=== PATIENT | male | born 1965 | race Two or more races ===

== ENCOUNTER 2019-08-11 11:49 | Inpatient (IN) | payer SELFPAY ==
[~2019-08-11] VITALS: Ht 175.3 cm; Wt 90.9 kg
[2019-08-11] MEDS ORDERED: IV NORMAL SALINE 1000ML BAG 1,000 ML IV ONE ×2 (13:45→15:45)
--- NOTE | 2019-08-11 13:54 | PHYS DOC ---
Adult General Chief Complaint Chief Complaint: MULTIPLE COMPLAINTS HPI HPI Patient is a 53 year old male who presents with generalized abdominal pain for last 3 days but today started with nausea, vomiting, diarrhea. 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 [facility] facility and he left after 1 day AMA due to poor care. Patient states his daughter took out his PICC line at home so he received no antibiotics. Patient is rating his pain a 6 out of 10. Patient's history is diabetes and arthritis. (GEORGINA HARRIS APRN) Review of Systems Review of Systems GI: Generalized abdominal pain, nausea, vomiting, eyes bloody stools or +diarrhea [] Integument: Skin infection to right hand and left [id number] amputation site. Denies rash or skin lesions [] All other systems were reviewed and found to be within normal limits, except as documented in this note. (GEORGINA HARRIS APRN) Current Medications Current Medications Current Medications Medications (Trade) Dose Ordered Sig/Hai Start Time Stop Time Status Last Admin Dose Admin Sodium Chloride 1,000 ml @ 1,000 mls/hr 1X ONCE 08/11/19 13:45 08/11/19 14:44 DC 08/11/19 14:00 1,000 MLS/HR (GABI BURNS MD) Allergies Allergies Allergies Coded Allergies Type Severity Reaction Last Updated Verified No Known Drug Allergies 08/11/19 No (GABI BURNS MD) Physical Exam Physical Exam Constitutional: Well developed, well nourished, no acute distress, non-toxic appearance. [] Cardiovascular:Heart rate regular rhythm, no murmur [] Lungs & Thorax: Bilateral breath sounds clear to auscultation [] Abdomen: Bowel sounds normal, soft, generalized tenderness, no masses, no pulsatile masses. [] Skin: Right hand infection with cellulitis and drainage. L BKA with sutures intact and redness. Warm, dry, no erythema, no rash. [] Extremities: No tenderness, no cyanosis, no clubbing, ROM intact, no edema. [] Neurologic: Alert and oriented X 3, normal motor function, normal sensory function, no focal deficits noted. [] Psychologic: Affect normal, judgement normal, mood normal. [] (GEORGINA HARRIS APRN) Current Patient Data Vital Signs Vital Signs Date Time Temp Pulse Resp B/P (MAP) Pulse Ox O2 Delivery O2 Flow Rate FiO2 08/11/19 15:00 90 18 182/95 (124) 96 Room Air 08/11/19 13:06 98.3 98.3 (GABI BURNS MD) Lab Values Laboratory Tests Test 08/11/19 13:40 08/11/19 14:05 Sodium Level 131 mmol/L (136-145) L Potassium Level 3.7 mmol/L (3.5-5.1) Chloride Level 100 mmol/L (98-107) Carbon Dioxide Level 18 mmol/L (21-32) L Anion Gap 13 (6-14) Blood Urea Nitrogen 32 mg/dL (8-26) H Creatinine 1.7 mg/dL (0.7-1.3) H Estimated GFR (Cockcroft-Gault) 42.2 BUN/Creatinine Ratio 19 (6-20) Glucose Level 213 mg/dL (70-99) H Lactic Acid Level 1.9 mmol/L (0.4-2.0) Calcium Level 9.6 mg/dL (8.5-10.1) Total Bilirubin 0.4 mg/dL (0.2-1.0) Aspartate Amino Transferase (AST) 29 U/L (15-37) Alanine Aminotransferase (ALT) 44 U/L (16-63) Alkaline Phosphatase 207 U/L (46-116) H Total Protein 8.7 g/dL (6.4-8.2) H Albumin 3.2 g/dL (3.4-5.0) L Albumin/Globulin Ratio 0.6 (1.0-1.7) L Lipase 443 U/L (73-393) H White Blood Count 7.0 x10^3/uL (4.0-11.0) Red Blood Count 3.22 x10^6/uL (4.30-5.70) L Hemoglobin 9.2 g/dL (13.0-17.5) L Hematocrit 26.3 % (39.0-53.0) L Mean Corpuscular Volume 82 fL (79-100) Mean Corpuscular Hemoglobin 29 pg (25-35) Mean Corpuscular Hemoglobin Concent 35 g/dL (31-37) Red Cell Distribution Width 15.2 % (11.5-14.5) H Platelet Count 244 x10^3/uL (140-400) Neutrophils (%) (Auto) 79 % (31-73) H Lymphocytes (%) (Auto) 15 % (24-48) L Monocytes (%) (Auto) 6 % (0-9) Eosinophils (%) (Auto) 0 % (0-3) Basophils (%) (Auto) 0 % (0-3) Neutrophils # (Auto) 5.5 x10^3/uL (1.8-7.7) Lymphocytes # (Auto) 1.0 x10^3/uL (1.0-4.8) Monocytes # (Auto) 0.4 x10^3/uL (0.0-1.1) Eosinophils # (Auto) 0.0 x10^3/uL (0.0-0.7) Basophils # (Auto) 0.0 x10^3/uL (0.0-0.2) Erythrocyte Sedimentation Rate 120 (0-15) H Hemoglobin A1c 7.7 % (4.8-5.6) H Iron Level 40 ug/dL (65-175) L Total Iron Binding Capacity 216 ug/dL (250-450) L Iron Saturation 19 % (15-34) Vitamin B12 Level 585 pg/mL (247-911) Laboratory Tests 08/11/19 14:05 Laboratory Tests 08/11/19 13:40 Microbiology 08/11/19 Blood Culture - Preliminary, Resulted NO GROWTH AFTER 2 DAYS (GABI BURNS MD) Lab Values Laboratory Tests Test 08/11/19 13:40 08/11/19 14:05 Sodium Level 131 mmol/L (136-145) L Potassium Level 3.7 mmol/L (3.5-5.1) Chloride Level 100 mmol/L (98-107) Carbon Dioxide Level 18 mmol/L (21-32) L Anion Gap 13 (6-14) Blood Urea Nitrogen 32 mg/dL (8-26) H Creatinine 1.7 mg/dL (0.7-1.3) H Estimated GFR (Cockcroft-Gault) 42.2 BUN/Creatinine Ratio 19 (6-20) Glucose Level 213 mg/dL (70-99) H Lactic Acid Level 1.9 mmol/L (0.4-2.0) Calcium Level 9.6 mg/dL (8.5-10.1) Total Bilirubin 0.4 mg/dL (0.2-1.0) Aspartate Amino Transferase (AST) 29 U/L (15-37) Alanine Aminotransferase (ALT) 44 U/L (16-63) Alkaline Phosphatase 207 U/L (46-116) H Total Protein 8.7 g/dL (6.4-8.2) H Albumin 3.2 g/dL (3.4-5.0) L Albumin/Globulin Ratio 0.6 (1.0-1.7) L Lipase 443 U/L (73-393) H White Blood Count 7.0 x10^3/uL (4.0-11.0) Red Blood Count 3.22 x10^6/uL (4.30-5.70) L Hemoglobin 9.2 g/dL (13.0-17.5) L Hematocrit 26.3 % (39.0-53.0) L Mean Corpuscular Volume 82 fL (79-100) Mean Corpuscular Hemoglobin 29 pg (25-35) Mean Corpuscular Hemoglobin Concent 35 g/dL (31-37) Red Cell Distribution Width 15.2 % (11.5-14.5) H Platelet Count 244 x10^3/uL (140-400) Neutrophils (%) (Auto) 79 % (31-73) H Lymphocytes (%) (Auto) 15 % (24-48) L Monocytes (%) (Auto) 6 % (0-9) Eosinophils (%) (Auto) 0 % (0-3) Basophils (%) (Auto) 0 % (0-3) Neutrophils # (Auto) 5.5 x10^3/uL (1.8-7.7) Lymphocytes # (Auto) 1.0 x10^3/uL (1.0-4.8) Monocytes # (Auto) 0.4 x10^3/uL (0.0-1.1) Eosinophils # (Auto) 0.0 x10^3/uL (0.0-0.7) Basophils # (Auto) 0.0 x10^3/uL (0.0-0.2) Erythrocyte Sedimentation Rate 120 (0-15) H Laboratory Tests 08/11/19 14:05 Laboratory Tests 08/11/19 13:40 (GEORGINA HARRIS APRN) EKG EKG SINUS RHYTHM AND NO STEMI[] Interpretation Time: [address] BURNS (GEORGINA HARRIS APRN) Radiology/Procedures Radiology/Procedures [] (GEORGINA HARRIS APRN) Impressions: [address] [address] IMAGING REPORT Signed PATIENT: EMILY HINKLE ACCOUNT: [id number] : 1965 LOCATION: ER AGE: 53 SEX: M EXAM STATUS: REG ER ORD. PHYSICIAN: GEORGINA HARRIS APRN REASON: post L BKA and Finger amputation, infection PROCEDURE: HAND RIGHT 3V Examination: HAND RIGHT 3V History: Finger amputation. Infection. Comparison/Correlation: None Findings: Total 3 images of the right hand were obtained. Amputation of the second and third digits noted. Partial amputation or other absence of the second metacarpal head laterally is evident. Bony densities noted in the soft tissues distal to the amputation site soft tissue swelling at this site noted. Impression: Soft tissue swelling about the amputation site. Amputations. Correlate with further imaging if osteomyelitis or abscess are a concern. Electronically signed by: Will Miller MD (08/11/2019 2:08 PM) [facility] DICTATED and SIGNED BY: WILL MILLER MD DATE: 08/11/[address] [id number] IMAGING REPORT Signed PATIENT: EMILY HINKLE ACCOUNT: [id number] : 1965 LOCATION: ER AGE: 53 SEX: M EXAM STATUS: REG ER ORD. PHYSICIAN: GEORGINA HARRIS APRN REASON: post L BKA and Finger amputation, infection PROCEDURE: TIBIA FIBULA LEFT Examination: TIBIA FIBULA LEFT History: Infection. Status post left below the knee amputation. Comparison/Correlation: None Findings: Frontal and lateral views of the left tibia and fibula were obtained. Joint spaces about the knee are unremarkable. Minimal spurring noted. Below the knee amputation is noted at the proximal tibial and fibular shaft levels. Skin mimi are present. Vascular calcifications noted. No suspicious prosthesis interface seen in this postoperative patient. Impression: No suspicious process. Consider further imaging if abscess or osteomyelitis are a concern. Electronically signed by: Will Miller MD (08/11/2019 2:05 PM) [facility] DICTATED and SIGNED BY: WILL MILLER MD DATE: 08/11/19 1407 [facility] [address] [place] [address] IMAGING REPORT Signed PATIENT: EMILY HINKLE ACCOUNT: [id number] : 1965 LOCATION: ER AGE: 53 SEX: M EXAM STATUS: REG ER ORD. PHYSICIAN: GEORGINA HARRIS APRN REASON: elevated alk phos and lipase PROCEDURE: ABDOMEN LTD Examination: ABDOMEN LTD History: Elevated lipase and alkaline phosphatase. Comparison/Correlation: None Findings: Hepatic echotexture is normal. Liver length is 17.2 cm. Gallbladder wall thickness is up to 0.3 cm. No cholelithiasis. No biliary dilatation. No pericholecystic fluid. Common bile duct measures 0.33 cm. Portal venous flow is unremarkable. Right kidney measures 10.7 cm x 5.6 cm x 5.3 cm. No right hydronephrosis. Renal echotexture is normal. Proximal pancreas is normal. Distal pancreas is obscured by bowel gas. No right upper quadrant ascites. Impression: Borderline liver size. No suspicious acute finding. Electronically signed by: Will Miller MD (08/11/2019 4:17 PM) [facility] DICTATED and SIGNED BY: WILL MILLER MD DATE: 08/11/19 056 (GEORGINA HARRIS APRN) Course & Med Decision Making Course & Med Decision Making Left below the knee amputation is reddened at incision site and mimi are intact. No drainage seen coming from the surgical site. Right hand right third finger amputation site is swollen and reddened and hot. There is purulent discharge from the surgical site. Patient has received no wound care. Abdomen is soft with generalized tenderness throughout. Vital signs within normal limits. Patient only states he has pain in his abdomen. Skin otherwise pink warm and dry. Alert and oriented. Speaks in full clear sentences. Denies chest pain, shortness of air, dizziness, headache, fever, recent illness, visual changes, focal weaknesses. Patient currently rating his pain a 6 out of 10. I have spoken to Dr Harmon for admission of pancreatitis and cellulitis. Dr. Harmon stated to start the patient on Zosyn and vancomycin and NS IV fluid at 75MLS/HR. (GEORGINA HARRIS APRN) Dragon Disclaimer Dragon Disclaimer This electronic medical record was generated, in whole or in part, using a voice recognition dictation system. (GEORGINA HARRIS APRN) Attending Signature I have participated in the care of this patient and I have reviewed and agree with all pertinent clinical information above including history, exam, and recommendations. (GABI BURNS MD) Departure Departure Impression: Primary Impression: Pancreatitis Additional Impression: Cellulitis Disposition: 09 ADMITTED INPATIENT Admitting Physician: AURORA (GEORGINA HARRIS APRN) Condition: STABLE Referrals: NO PCP (PCP) Scripts Insulin Lispro (HUMALOG) 100 Unit/1 Ml Insuln.pen 26 UNITS SQ TIDWMEALS for DM2 for 30 Days, #1 EACH 4 Refills Plus sliding scale 4u - 151-200 5u - 201-250 7u - 251-300 9u - 301-350 Prov: ESCOBAR MUÑIZ MD 08/13/19 Vancomycin Hcl (VANCOMYCIN HCL) 500 Mg Vial 125 MG PO [id number] for C difficile for 10 Days, #40 EACH Can sub with any oral vancomycin formulation Prov: ESCOBAR MUÑIZ MD 08/13/19 Insulin Glargine,Hum.rec.anlog (LANTUS SOLOSTAR) 100 Unit/1 Ml Insuln.pen 70 UNIT SQ QHS for Diabetes for 30 Days, #1 ML 3 Refills Prov: ESCOBAR MUÑIZ MD 08/13/19 Problem Qualifiers Primary Impression: Pancreatitis Chronicity: acute Pancreatitis type: unspecified pancreatitis type Acute pancreatitis complication: unspecified Qualified Codes: K85.90 - Acute pancreatitis without necrosis or infection, unspecified Additional Impression: Cellulitis Site of cellulitis: extremity Site of cellulitis of extremity: upper extremity Laterality: right Qualified Codes: L03.113 - Cellulitis of right upper limb GEORGINA HARRIS APRN Aug 11, 2019 13:54 GABI BURNS MD Aug 13, 2019 18:16
[2019-08-11 14:01] LABS: CALCIUM 9.6 mg/dL (8.5-10.1); CREATININE 1.7 mg/dL (0.7-1.3); GFR 42.2; POTASSIUM 3.7 mmol/L (3.5-5.1)
[2019-08-11 14:07] LABS: ALBUMIN 3.2 g/dL (3.4-5.0); ALBUMIN/GLOBULIN RATIO 0.6 (1.0-1.7); TOTAL BILIRUBIN 0.4 mg/dL (0.2-1.0); TOTAL PROTEIN 8.7 g/dL (6.4-8.2)
--- NOTE | 2019-08-11 14:08 | RAD ---
Examination: TIBIA FIBULA LEFT History: Infection. Status post left below the knee amputation. Comparison/Correlation: None Findings: Frontal and lateral views of the left tibia and fibula were obtained. Joint spaces about the knee are unremarkable. Minimal spurring noted. Below the knee amputation is noted at the proximal tibial and fibular shaft levels. Skin mimi are present. Vascular calcifications noted. No suspicious prosthesis interface seen in this postoperative patient. Impression: No suspicious process. Consider further imaging if abscess or osteomyelitis are a concern. Electronically signed by: Will Harper MD (08/11/2019 2:05 PM) [facility]
--- NOTE | 2019-08-11 14:11 | RAD ---
Examination: HAND RIGHT 3V History: Finger amputation. Infection. Comparison/Correlation: None Findings: Total 3 images of the right hand were obtained. Amputation of the second and third digits noted. Partial amputation or other absence of the second metacarpal head laterally is evident. Bony densities noted in the soft tissues distal to the amputation site soft tissue swelling at this site noted. Impression: Soft tissue swelling about the amputation site. Amputations. Correlate with further imaging if osteomyelitis or abscess are a concern. Electronically signed by: Will Harper MD (08/11/2019 2:08 PM) [facility]
[2019-08-11 14:14] LABS: BASO % 0 % (0-3); EOS % 0 % (0-3); HEMATOCRIT 26.3 % (39.0-53.0); HEMOGLOBIN 9.2 g/dL (13.0-17.5); LYMPH % 15 % (24-48); MEAN CORPUSCULAR HEMOGLOBIN 29 pg (25-35); MEAN CORPUSCULAR HGB CONC 35 g/dL (31-37); MEAN CORPUSCULAR VOLUME 82 fL (79-100); MONO # 0.4 x10^3/uL (0.0-1.1); MONO % 6 % (0-9); NEUT # 5.5 x10^3/uL (1.8-7.7); NEUT % 79 % (31-73); PLATELET COUNT 244 x10^3/uL (140-400); RED BLOOD COUNT 3.22 x10^6/uL (4.30-5.70); RED CELL DISTRIBUTION WIDTH 15.2 % (11.5-14.5)
[2019-08-11] MEDS ORDERED: PIP/TAZO PER PHARMACY MC PRN (15:45)
[2019-08-11] MEDS ORDERED: ONDANSETRON PF 4 MG/2 ML VIAL. IV PRN (15:45)
[2019-08-11] MEDS ORDERED: fentaNYL PF VIAL 100 MCG/2 ML VIAL IV PRN (15:45)
[2019-08-11] MEDS ORDERED: VANCOMYCIN PER PHARMACY MC PRN (15:45)
[2019-08-11] MEDS ORDERED: PIPERACILLIN/TAZOBACTAM 3.375 GM in IV NORMAL SALINE 50ML 50 ML IV ONE (16:00)
[2019-08-11] MEDS ORDERED: VANCOMYCIN 2 GM in IV NORMAL SALINE 500ML BAG 500 ML IV ONE (16:00)
--- NOTE | 2019-08-11 16:01 | PDOC2 ---
GI CONSULT Reason For Consult: Pancreatitis HPI: HPI: 53 y/o male seen in ER. [place] B[place] and [place] [facility] diabetic [place]. Doesn't want to go back to [facility] because they sent him to rehab and he didn't like it there because they didn't keep good track of his blood sugar. Says not on antibiotics. GI-rodrigues, he reports decreased appetite beginning 5 days ago. Then about 3 days ago developed n/v, mid/lower abd cramping (constant but worse after eating and before stooling, moves from left to right), and diarrhea ("many many times") after eating some apples. Also thinks he has a new prostate problem because it's difficult to urinate. Typically no issues w/ n/v, abd pain, or diarrhea. Denies reflux/heartburn, dysphagia, hematemesis, hematochezia, and melena. Assumes weight loss. No previous EGD or colonoscopy. No GB, liver, pancreas, or PUD history. No NSAIDs - takes Tramadol for chronic arthritis pain. Did require blood transfusion [place] [facility] Labs note Hgb 9.2, MCV 82, glucose 213, Cr 1.7, BUN 32, Alk Phos 207, Na 131, lipase 443, AG ratio 0.6, normal lactic acid, ESR 120. He denies CKD. Hand x-ray notes soft tissue swelling about the amputation site. Abd US is pending. 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) Drugs: None ROS: GEN: Denies fevers, chills, sweats HEENT: Denies blurred vision, sore throat CV: Denies chest pain RESP: Denies shortness of air, cough GI: Per HPI : +hesitancy ENDO: +weight loss NEURO: Denies confusion, dizziness MSK: +chronic pain, also recent amputations SKIN: Denies jaundice, pruritus Vitals: Vitals: Vital Signs Date Time Temp Pulse Resp B/P (MAP) Pulse Ox O2 Delivery O2 Flow Rate FiO2 08/11/19 13:06 98.3 88 18 184/86 (118) 100 Room Air 98.3 Labs: Labs: Laboratory Tests Test 08/11/19 13:40 08/11/19 14:05 Sodium Level 131 mmol/L (136-145) Potassium Level 3.7 mmol/L (3.5-5.1) Chloride Level 100 mmol/L (98-107) Carbon Dioxide Level 18 mmol/L (21-32) Anion Gap 13 (6-14) Blood Urea Nitrogen 32 mg/dL (8-26) Creatinine 1.7 mg/dL (0.7-1.3) Estimated GFR (Cockcroft-Gault) 42.2 BUN/Creatinine Ratio 19 (6-20) Glucose Level 213 mg/dL (70-99) Lactic Acid Level 1.9 mmol/L (0.4-2.0) Calcium Level 9.6 mg/dL (8.5-10.1) Total Bilirubin 0.4 mg/dL (0.2-1.0) Aspartate Amino Transf (AST/SGOT) 29 U/L (15-37) Alanine Aminotransferase (ALT/SGPT) 44 U/L (16-63) Alkaline Phosphatase 207 U/L (46-116) Total Protein 8.7 g/dL (6.4-8.2) Albumin 3.2 g/dL (3.4-5.0) Albumin/Globulin Ratio 0.6 (1.0-1.7) Lipase 443 U/L (73-393) White Blood Count 7.0 x10^3/uL (4.0-11.0) Red Blood Count 3.22 x10^6/uL (4.30-5.70) Hemoglobin 9.2 g/dL (13.0-17.5) Hematocrit 26.3 % (39.0-53.0) Mean Corpuscular Volume 82 fL (79-100) Mean Corpuscular Hemoglobin 29 pg (25-35) Mean Corpuscular Hemoglobin Concent 35 g/dL (31-37) Red Cell Distribution Width 15.2 % (11.5-14.5) Platelet Count 244 x10^3/uL (140-400) Neutrophils (%) (Auto) 79 % (31-73) Lymphocytes (%) (Auto) 15 % (24-48) Monocytes (%) (Auto) 6 % (0-9) Eosinophils (%) (Auto) 0 % (0-3) Basophils (%) (Auto) 0 % (0-3) Neutrophils # (Auto) 5.5 x10^3/uL (1.8-7.7) Lymphocytes # (Auto) 1.0 x10^3/uL (1.0-4.8) Monocytes # (Auto) 0.4 x10^3/uL (0.0-1.1) Eosinophils # (Auto) 0.0 x10^3/uL (0.0-0.7) Basophils # (Auto) 0.0 x10^3/uL (0.0-0.2) Erythrocyte Sedimentation Rate 120 (0-15) Allergies: Coded Allergies: No Known Drug Allergies (Unverified , 08/11/19) Medications: Current Medications Medications (Trade) Dose Ordered Sig/Hai Route PRN Reason Start Time Stop Time Status Last Admin Dose Admin Sodium Chloride 1,000 ml @ 1,000 mls/hr 1X ONCE IV 08/11/19 13:45 08/11/19 14:44 DC 08/11/19 14:00 Imaging: Imaging: Left Tib-Fib X-Ray 08/11 Impression: No suspicious process. Consider further imaging if abscess or osteomyelitis are a concern. Right Hand X-Ray 08/11 Impression: Soft tissue swelling about the amputation site. Amputations. Correlate with further imaging if osteomyelitis or abscess are a concern. Abd US 08/11 pending PE: GEN: NAD HEENT: Atraumatic, PERRL LUNGS: CTAB HEART: RRR ABD: NABS, S/ND/NT EXTREMITY: left BKA w/ mimi, right middle finger amputation site w/ yellowish drainage SKIN: No rashes, no jaundice NEURO/PSYCH: A & O �3 A/P: A/P: Recent left BKA and right finger amputation N/v, abd cramping, diarrhea Anemia - had recent blood transfusion, no obvious bleeding Mildly elevated lipase, elevated Alk Phos CRC screen - none HTN, DM, ?CKD -- Check anemia parameters and stool studies. Also check UA/cx. 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 Await US, check CT A/P (w/o contrast w/ Cr 1.7). Plan for outpt colonoscopy for screening. Started on atbx per ER, ID to see. ALY ZAMARRIPA Aug 11, 2019 16:01
[2019-08-11] MEDS ORDERED: PANTOPRAZOLE IV PUSH 40 MG VIAL. IVP SCH (16:30)
--- NOTE | 2019-08-11 16:41 | RAD ---
Examination: ABDOMEN LTD History: Elevated lipase and alkaline phosphatase. Comparison/Correlation: None Findings: Hepatic echotexture is normal. Liver length is 17.2 cm. Gallbladder wall thickness is up to 0.3 cm. No cholelithiasis. No biliary dilatation. No pericholecystic fluid. Common bile duct measures 0.33 cm. Portal venous flow is unremarkable. Right kidney measures 10.7 cm x 5.6 cm x 5.3 cm. No right hydronephrosis. Renal echotexture is normal. Proximal pancreas is normal. Distal pancreas is obscured by bowel gas. No right upper quadrant ascites. Impression: Borderline liver size. No suspicious acute finding. Electronically signed by: Will Harper MD (08/11/2019 4:17 PM) [facility]
--- NOTE | 2019-08-11 17:12 | RAD ---
Abdominal and Pelvis CT, Without Contrast: History: Vomiting lower abdominal pain and diarrhea and elevated lipase Comparison: None. Procedure: Axial images are obtained of the abdomen and pelvis, without IV or oral contrast. CT Abdomen without Contrast: Findings: Evaluation of solid organs is limited without contrast. Evaluation of stomach and bowel is limited without oral contrast. There is old fractures the ends of the left eighth and ninth ribs. The colon is collapsed limiting its evaluation. Liver: Normal. Spleen: Normal. Pancreas: Normal. Adrenal Glands: Normal. Kidneys: Normal. There is no free air or free fluid. There is no lymphadenopathy. Impression: Please see CT Pelvis without Contrast. End Impression. CT Pelvis without Contrast: Findings: The urinary bladder appears normal. There is no free fluid. There is no lymphadenopathy. There is no pericolonic inflammation identified. The appendix is not identified. Impression: No acute findings. End impression PQRS Compliance Statement: One or more of the following individualized dose reduction techniques were utilized for this examination: 1. Automated exposure control 2. Adjustment of the mA and/or kV according to patient size 3. Use of iterative reconstruction technique Electronically signed by: Gerard Lew III, MD (08/11/2019 5:10 PM) [facility]
[2019-08-11] MEDS: IV NORMAL SALINE 1000ML BAG 1,000 ML IV SCH (17:23)
--- NOTE | 2019-08-11 19:06 | NUR ---
Pharmacy Vancomycin Dosing Note S:Consulted to monitor and dose vancomycin started 08/11/19. O:EMILY HINKLE is a 53 year old M with Cellulitis . Height: 5 feet, 9 inches Weight: 90.378197 kg [place] Body Weight: 70.70 Adjusted Body Weight: 78.82 Dosing Weight: Actual Other Antibiotics: ZOSYN 08/11 - LABS: Last BUN: 32 Last Creatinine: 1.7 Creatinine Clearance: 55 mL/min Last WBC: 7 Last Procalcitonin: N Tmax (past 24 hours): 98.3 Microbiology: 08/11 PENDING I/O: Drug Levels: Last level: on at Last dose given 08/11/19 at 1700 Vancomycin Dosing: Loading Dose: 2000 mg x1 Dosing Weight: Actual Target Trough: 10-20 A: Based on: WEIGHT,CRCL~55 P: 1. INITIATE Vancomycin 1500 mg IV q24h AFTER 2000 MG LOADING DOSE 2. Follow up Trough level on 08/13/19 at 1630 3. Pharmacy will continue to monitor, follow and adjust therapy as needed. REYNALDO VELAZQUEZ [facility], 08/11/19 [id number]
[2019-08-11 19:25] VITALS: BP 156/80
--- NOTE | 2019-08-11 20:07 | HP ---
ADMIT DATE: 08/11/2019 CHIEF COMPLAINT: Abdominal pain, nausea, right hand infection, recent left tsdsk-mmi-mtuv amputation. 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 He underwent a left mcqso-wqj-fhgd amputation, I think at [facility]. He also had a right third finger amputated. As I understand, he left against medical advice at that facility. Now, he has got an infected third finger where the stump is, where the finger was resected. He also has abdominal pain and noted to have pancreatitis today with elevated lipase of 443. Indeed, he does not drink. I discussed the case with the Emergency Room physician. We are going to admit the patient and treat his right third finger infection and do some wound care on the left below knee amputation and give him alcohol withdrawal protocol and treat his pancreatitis. PAST MEDICAL HISTORY: Alcohol issues, peripheral vascular disease, recent wigbb-scc-wmkh amputation, recent right third finger amputation, noncompliance, hypertension. ALLERGIES: None. FAMILY HISTORY: Hypertension. SOCIAL HISTORY: I think he drinks heavily. No smoking or drugs. MEDICATIONS: Reviewed, please refer to the MRAD. REVIEW OF SYSTEMS: GENERAL: No history of weight change, weakness or fevers. SKIN: No bruising, hair changes or rashes. EYES: No blurred, double or loss of vision. NOSE AND THROAT: No history of nosebleeds, hoarseness or sore throat. HEART: No history of palpitations, chest pain or shortness of breath on exertion. LUNGS: Denies cough, hemoptysis, wheezing or shortness of breath. GASTROINTESTINAL: He complains of abdominal pain. GENITOURINARY: No history of frequency, urgency, hesitancy or nocturia. NEUROLOGIC: Denies history of numbness, tingling, tremor or weakness. PSYCHIATRIC: No history of panic, anxiety or depression. ENDOCRINE: No history of heat or cold intolerance, polyuria or polydipsia. EXTREMITIES: He complains of left leg pain at the stump site and right hand pain at the stump site where they removed the finger. PHYSICAL EXAMINATION: VITALS: Within normal limits and are stable. GENERAL: No apparent distress. Alert and oriented. HEENT: Head is normocephalic, atraumatic, pupils were equally round and reactive to light and accommodation. NECK: Supple, no JVD, no thyromegaly was noted. LUNGS: Clear to auscultation in all lung jara without rhonchi or wheezing. HEART: RRR, S1, S2 present. Peripheral pulses intact, no obvious murmurs were noted. ABDOMEN: Soft, nontender. Positive bowel sounds no organomegaly, normal bowel sounds. EXTREMITIES: The left leg has a orggh-ktdw-peugsrwilx and the right third finger is missing. There is pus coming from the stump. NEUROLOGIC: Normal speech, normal tone. A & O x3, moves all extremities, no obvious focal deficits. PSYCHIATRIC: Normal affect, normal mood. Stable. SKIN: No ulcerations or rashes, good skin turgor, no jaundice. VASCULAR: Good capillary refill, neurovascular bundle appears to be intact. LABORATORY DATA: Sodium 131, BUN 32, creatinine 1.7. Lipase is 443. ASSESSMENT AND PLAN: Right third finger infection of the stump site, pancreatitis, alcohol issues and severe noncompliance. The patient has been admitted. We will consult Gastroenterology and Infectious Disease. IV antibiotics, wound care, deep venous thrombosis prophylaxis, full code, alcohol withdrawal protocol and home medications. PROGNOSIS: Guarded. KARENL Aixa EDGE DO DR: CARLOS/jaymie JOB#: [id number] / [id number]
[2019-08-11 23:25] VITALS: BP 135/52
[2019-08-12] MEDS: PIPERACILLIN/TAZOBACTAM 4.5 GM in IV NORMAL SALINE 100ML 100 ML IV SCH ×3 (00:22→12:00)
[2019-08-12 03:25] VITALS: BP 144/78
[2019-08-12] MEDS: IV NORMAL SALINE 1000ML BAG 1,000 ML IV SCH (04:55)
[2019-08-12 05:16] LABS: CREATININE 1.7 mg/dL (0.7-1.3); GFR 42.2
--- NOTE | 2019-08-12 05:52 | EKG ---
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
[2019-08-12 07:00] VITALS: BP 142/74
--- NOTE | 2019-08-12 08:34 | NUR ---
Wound care Wound care consult for right hand open surgical incision. Cleansed wound, applied iodoflex and covered telfa bandaid. L BKA surgical incision with intact mimi and sutures, slightly reddened and edematous. Cleansed with chlorprep and wrapped with kerlix per pt request. No other wounds noted on fulls kin inspection. WC will continue to follow for possible changes.
[2019-08-12] MEDS ORDERED: ONDANSETRON PF 4 MG/2 ML VIAL. IV PRN (09:00)
[2019-08-12] MEDS ORDERED: ACETAMINOPHEN 500 MG TABLET PO PRN (09:00)
[2019-08-12] MEDS ORDERED: ZOLPIDEM 5 MG TABLET. PO PRN (09:00)
[2019-08-12] MEDS ORDERED: LABETALOL 20 MG/4 ML DISP.SYRIN. IVP PRN (09:00)
[2019-08-12] MEDS ORDERED: MORPHINE SULFATE 2 MG/ML VIAL. IV PRN (09:00)
[2019-08-12] MEDS ORDERED: NICOTINE 21MG PATCH. TD PRN (09:00)
--- NOTE | 2019-08-12 10:06 | PDOC ---
Subjective: Subjective: Feels better. No n/v, no abd pain. Notes small amount of watery brown stool on bedding - must have occurred overnight. Hungry. Objective: Objective: Reviewed chart - ?left AMA from [facility], tox screen, and A1c cancelled by lab. Vital Signs: Vital Signs Date Time Temp Pulse Resp B/P (MAP) Pulse Ox O2 Delivery O2 Flow Rate FiO2 08/12/19 07:00 98.4 74 16 142/74 (96) 99 Room Air 98.4 Labs: Laboratory Tests Test 08/11/19 13:40 08/11/19 14:05 08/11/19 21:13 08/12/19 04:00 Sodium Level 131 mmol/L Potassium Level 3.7 mmol/L Chloride Level 100 mmol/L Carbon Dioxide Level 18 mmol/L Anion Gap 13 Blood Urea Nitrogen 32 mg/dL Creatinine 1.7 mg/dL 1.7 mg/dL Estimated GFR (Cockcroft-Gault) 42.2 42.2 BUN/Creatinine Ratio 19 Glucose Level 213 mg/dL Lactic Acid Level 1.9 mmol/L Calcium Level 9.6 mg/dL Total Bilirubin 0.4 mg/dL Aspartate Amino Transf (AST/SGOT) 29 U/L Alanine Aminotransferase (ALT/SGPT) 44 U/L Alkaline Phosphatase 207 U/L Total Protein 8.7 g/dL Albumin 3.2 g/dL Albumin/Globulin Ratio 0.6 Lipase 443 U/L White Blood Count 7.0 x10^3/uL Red Blood Count 3.22 x10^6/uL Hemoglobin 9.2 g/dL Hematocrit 26.3 % Mean Corpuscular Volume 82 fL Mean Corpuscular Hemoglobin 29 pg Mean Corpuscular Hemoglobin Concent 35 g/dL Red Cell Distribution Width 15.2 % Platelet Count 244 x10^3/uL Neutrophils (%) (Auto) 79 % Lymphocytes (%) (Auto) 15 % Monocytes (%) (Auto) 6 % Eosinophils (%) (Auto) 0 % Basophils (%) (Auto) 0 % Neutrophils # (Auto) 5.5 x10^3/uL Lymphocytes # (Auto) 1.0 x10^3/uL Monocytes # (Auto) 0.4 x10^3/uL Eosinophils # (Auto) 0.0 x10^3/uL Basophils # (Auto) 0.0 x10^3/uL Erythrocyte Sedimentation Rate 120 Iron Level 40 ug/dL Total Iron Binding Capacity 216 ug/dL Iron Saturation 19 % Vitamin B12 Level 585 pg/mL Glucose (Fingerstick) 208 mg/dL Test 08/12/19 07:30 Glucose (Fingerstick) 162 mg/dL Imaging: CT A/P w/o contrast 08/11 Findings: Evaluation of solid organs is limited without contrast. Evaluation of stomach and bowel is limited without oral contrast. There is old fractures the ends of the left eighth and ninth ribs. The colon is collapsed limiting its evaluation. Liver: Normal. Spleen: Normal. Pancreas: Normal. Adrenal Glands: Normal. Kidneys: Normal. There is no free air or free fluid. There is no lymphadenopathy. CT Pelvis without Contrast: Findings: The urinary bladder appears normal. There is no free fluid. There is no lymphadenopathy. There is no pericolonic inflammation identified. The appendix is not identified. Impression: No acute findings. RUQ US Findings: Hepatic echotexture is normal. Liver length is 17.2 cm. Gallbladder wall thickness is up to 0.3 cm. No cholelithiasis. No biliary dilatation. No pericholecystic fluid. Common bile duct measures 0.33 cm. Portal venous flow is unremarkable. Right kidney measures 10.7 cm x 5.6 cm x 5.3 cm. No right hydronephrosis. Renal echotexture is normal. Proximal pancreas is normal. Distal pancreas is obscured by bowel gas. No right upper quadrant ascites. Impression: Borderline liver size. No suspicious acute finding. PE: GEN: NAD - sitting on edge of bed LUNGS: CTAB HEART: RRR ABD: S/ND/NT NEURO/PSYCH: A & O �3 A/P: Recent left BKA and right finger amputation N/v, abd cramping, diarrhea - resolving ACD Mildly elevated lipase, elevated Alk Phos DM, suspect CKD -- Try clears, ADAT. 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 Monitor for diarrhea - stool studies are ordered/uncollected. Unclear significance of mildly elevated lipase w/ normal pancreas and GB on imaging - recheck. ALY ZAMARRIPA Aug 12, 2019 10:06
--- NOTE | 2019-08-12 10:19 | PDOC ---
Infectious Disease Note Vital Sign Vital Signs Vital Signs Date Time Temp Pulse Resp B/P (MAP) Pulse Ox O2 Delivery O2 Flow Rate FiO2 08/12/19 07:00 98.4 74 16 142/74 (96) 99 Room Air 98.4 Labs Lab Laboratory Tests Test 08/11/19 13:40 08/11/19 14:05 08/11/19 21:13 08/12/19 04:00 Sodium Level 131 mmol/L (136-145) Potassium Level 3.7 mmol/L (3.5-5.1) Chloride Level 100 mmol/L (98-107) Carbon Dioxide Level 18 mmol/L (21-32) Anion Gap 13 (6-14) Blood Urea Nitrogen 32 mg/dL (8-26) Creatinine 1.7 mg/dL (0.7-1.3) 1.7 mg/dL (0.7-1.3) Estimated GFR (Cockcroft-Gault) 42.2 42.2 BUN/Creatinine Ratio 19 (6-20) Glucose Level 213 mg/dL (70-99) Lactic Acid Level 1.9 mmol/L (0.4-2.0) Calcium Level 9.6 mg/dL (8.5-10.1) Total Bilirubin 0.4 mg/dL (0.2-1.0) Aspartate Amino Transf (AST/SGOT) 29 U/L (15-37) Alanine Aminotransferase (ALT/SGPT) 44 U/L (16-63) Alkaline Phosphatase 207 U/L (46-116) Total Protein 8.7 g/dL (6.4-8.2) Albumin 3.2 g/dL (3.4-5.0) Albumin/Globulin Ratio 0.6 (1.0-1.7) Lipase 443 U/L (73-393) White Blood Count 7.0 x10^3/uL (4.0-11.0) Red Blood Count 3.22 x10^6/uL (4.30-5.70) Hemoglobin 9.2 g/dL (13.0-17.5) Hematocrit 26.3 % (39.0-53.0) Mean Corpuscular Volume 82 fL (79-100) Mean Corpuscular Hemoglobin 29 pg (25-35) Mean Corpuscular Hemoglobin Concent 35 g/dL (31-37) Red Cell Distribution Width 15.2 % (11.5-14.5) Platelet Count 244 x10^3/uL (140-400) Neutrophils (%) (Auto) 79 % (31-73) Lymphocytes (%) (Auto) 15 % (24-48) Monocytes (%) (Auto) 6 % (0-9) Eosinophils (%) (Auto) 0 % (0-3) Basophils (%) (Auto) 0 % (0-3) Neutrophils # (Auto) 5.5 x10^3/uL (1.8-7.7) Lymphocytes # (Auto) 1.0 x10^3/uL (1.0-4.8) Monocytes # (Auto) 0.4 x10^3/uL (0.0-1.1) Eosinophils # (Auto) 0.0 x10^3/uL (0.0-0.7) Basophils # (Auto) 0.0 x10^3/uL (0.0-0.2) Erythrocyte Sedimentation Rate 120 (0-15) Iron Level 40 ug/dL (65-175) Total Iron Binding Capacity 216 ug/dL (250-450) Iron Saturation 19 % (15-34) Vitamin B12 Level 585 pg/mL (247-911) Glucose (Fingerstick) 208 mg/dL (70-99) Test 08/12/19 07:30 Glucose (Fingerstick) 162 mg/dL (70-99) Objective Assessment pt seen, consult dictated Plan Plan of Care / HINA FISH MD Aug 12, 2019 10:19
[2019-08-12] MEDS ORDERED: INSU100I13 SQ (10:56)
[2019-08-12] MEDS ORDERED: INSU100V6 SQ (10:56)
[2019-08-12 11:00] VITALS: BP 138/71
--- NOTE | 2019-08-12 11:37 | CONS ---
DATE OF CONSULTATION: 08/12/2019 REQUESTING PHYSICIAN: Dr. Harmon. REASON FOR CONSULTATION: Possible stump infection. HISTORY OF PRESENT ILLNESS: This is a 53-year-old gentleman who recently underwent a left BKA and right second and third finger amputations. Apparently, the leg amputation was because of the diabetes and infection. The finger infection was because he burned the finger and then got infected and eventually amputated, all done at the same time about 3 weeks ago at [place]. The patient apparently walked out from there, was not on any antibiotics. The patient had been okay until he started having abdominal pain, hence he came in. The patient was noted to have a slightly high lipase, otherwise, abdominal CT unremarkable. The patient had no fever, no leukocytosis, although his sed rate is 120. Creatinine is 1.7. The patient has been admitted and started on vancomycin and Zosyn and consult has been requested. The patient now says he has no abdominal pain. In fact, he is hungry. He is wondering when they are going to give him food. PAST MEDICAL HISTORY: Positive for diabetes mellitus, hypertension, noncompliance, hyperlipidemia. Also, history of alcohol problem, but he says he has not been drinking in the last 2 years. Left BKA and right second and third finger amputations at the metacarpophalangeal joint. ALLERGIES: No known drug allergies. SOCIAL HISTORY: Negative for smoking. Last alcohol was, he says, 2 years ago. No drug use. CURRENT MEDICATIONS: Reviewed. REVIEW OF SYSTEMS: As per HPI, all other systems reviewed are negative. PHYSICAL EXAMINATION: GENERAL: Alert, oriented gentleman, not in any distress. VITAL SIGNS: Stable, afebrile. HEENT: NAD. NECK: Supple, no JVP, no lymphadenopathy. LUNGS: Clear. HEART: S1, S2 regular. ABDOMEN: Benign. EXTREMITIES: No edema or cyanosis. SKIN: Left BKA stump is unremarkable. Looks really good. At the right hand amputation site on the third finger at the base, there is a slightly open wound. There are no signs of infection. There is no exposed bone or tendon. There is superficial wound seen. NEUROLOGIC: The patient is neurologically alert, awake, and appropriate. No focal neurologic deficit. LABORATORY DATA: White count is normal. BUN and creatinine are 32 and 1.7. Lipase was 443. X-ray and CT all reviewed. Ultrasound unremarkable. IMPRESSION: 1. Abdominal pain with a slightly elevated lipase of unclear etiology. 2. 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 3. Recent amputation at the metacarpophalangeal joint of the second and third fingers. There is a slight superficial wound there. There are no other signs of infection. It does not look deep. 4. Diabetes. 5. Renal insufficiency, baseline is unknown. RECOMMENDATIONS: We will discontinue IV antibiotics and put him on Cipro and doxy and the patient can be discharged to have followup with his surgeon. Hydration and supportive care. Thank you very much, Dr. Harmon, for giving me the opportunity to participate in this patient's care. HINA FISH MD DR: ANNABELLE/nts JOB#: [id number] / [id number]
[2019-08-12] MEDS ORDERED: DEXTROSE 50% 25 GM / 50ML DISP.SYRIN. IV PRN (12:00)
[2019-08-12] MEDS ORDERED: ONDANSETRON PF 4 MG/2 ML VIAL. IVP PRN (12:00)
[2019-08-12] MEDS: DOXYCYCLINE HYCLATE 100 MG TABLET PO SCH ×2 (12:02→22:20)
[2019-08-12] MEDS: CIPROFLOXACIN HCL 250 MG TABLET. PO SCH ×2 (12:02→22:20)
--- NOTE | 2019-08-12 12:04 | PDOC ---
PROGRESS NOTES Chief Complaint Chief Complaint 1. Abdominal pain with a slightly elevated lipase of unclear etiology. 2. 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 3. Recent amputation at the metacarpophalangeal joint of the second and third fingers. There is a slight superficial wound there. There are no other signs of infection. It does not look deep. 4. Diabetes. 5. Renal insufficiency, baseline is unknown. History of Present Illness History of Present Illness LIpase 433, NORMAL CT MInimal abd pain GI seen, conservative mx ID also saw for that recent rt finger amputation at [place] and left BKA Some imaging, shows swelling, correlate with concerns for soeto ID has shifted to PO abx PLAN: COnt wound care, PO abx Recheck lipase tmr though significance unclear MAy upgrade to GI soft or even reg diet if GI ok (Seems to be) MAy dc tele, transfer out tele floor dw RN Vitals Vitals Vital Signs Date Time Temp Pulse Resp B/P (MAP) Pulse Ox O2 Delivery O2 Flow Rate FiO2 08/12/19 11:00 98.4 82 16 138/71 (93) 100 Room Air 98.4 Physical Exam General: Alert, Oriented X3, Cooperative, No acute distress Heart: Regular rate, Normal S1, Normal S2, No murmurs Lungs: Clear Abdomen: Normal bowel sounds, Soft, No tenderness Extremities: No clubbing, No cyanosis, No edema, Normal pulses, Other (left BKA stump with sutures, RT fonger dressing dry) Labs LABS Laboratory Tests Test 08/11/19 13:40 08/11/19 14:05 08/11/19 21:13 08/12/19 04:00 Sodium Level 131 mmol/L (136-145) Potassium Level 3.7 mmol/L (3.5-5.1) Chloride Level 100 mmol/L (98-107) Carbon Dioxide Level 18 mmol/L (21-32) Anion Gap 13 (6-14) Blood Urea Nitrogen 32 mg/dL (8-26) Creatinine 1.7 mg/dL (0.7-1.3) 1.7 mg/dL (0.7-1.3) Estimated GFR (Cockcroft-Gault) 42.2 42.2 BUN/Creatinine Ratio 19 (6-20) Glucose Level 213 mg/dL (70-99) Lactic Acid Level 1.9 mmol/L (0.4-2.0) Calcium Level 9.6 mg/dL (8.5-10.1) Total Bilirubin 0.4 mg/dL (0.2-1.0) Aspartate Amino Transf (AST/SGOT) 29 U/L (15-37) Alanine Aminotransferase (ALT/SGPT) 44 U/L (16-63) Alkaline Phosphatase 207 U/L (46-116) Total Protein 8.7 g/dL (6.4-8.2) Albumin 3.2 g/dL (3.4-5.0) Albumin/Globulin Ratio 0.6 (1.0-1.7) Lipase 443 U/L (73-393) 830 U/L (73-393) White Blood Count 7.0 x10^3/uL (4.0-11.0) Red Blood Count 3.22 x10^6/uL (4.30-5.70) Hemoglobin 9.2 g/dL (13.0-17.5) Hematocrit 26.3 % (39.0-53.0) Mean Corpuscular Volume 82 fL (79-100) Mean Corpuscular Hemoglobin 29 pg (25-35) Mean Corpuscular Hemoglobin Concent 35 g/dL (31-37) Red Cell Distribution Width 15.2 % (11.5-14.5) Platelet Count 244 x10^3/uL (140-400) Neutrophils (%) (Auto) 79 % (31-73) Lymphocytes (%) (Auto) 15 % (24-48) Monocytes (%) (Auto) 6 % (0-9) Eosinophils (%) (Auto) 0 % (0-3) Basophils (%) (Auto) 0 % (0-3) Neutrophils # (Auto) 5.5 x10^3/uL (1.8-7.7) Lymphocytes # (Auto) 1.0 x10^3/uL (1.0-4.8) Monocytes # (Auto) 0.4 x10^3/uL (0.0-1.1) Eosinophils # (Auto) 0.0 x10^3/uL (0.0-0.7) Basophils # (Auto) 0.0 x10^3/uL (0.0-0.2) Erythrocyte Sedimentation Rate 120 (0-15) Iron Level 40 ug/dL (65-175) Total Iron Binding Capacity 216 ug/dL (250-450) Iron Saturation 19 % (15-34) Vitamin B12 Level 585 pg/mL (247-911) Glucose (Fingerstick) 208 mg/dL (70-99) Test 08/12/19 07:30 08/12/19 11:27 Glucose (Fingerstick) 162 mg/dL (70-99) 215 mg/dL (70-99) Review of Systems Review of Systems neg 14 pt reviewed with him Assessment and Plan Assessmemt and Plan Problems Medical Problems: (1) Cellulitis Status: Acute (2) Pancreatitis Status: Acute Comment Review of Relevant I have reviewed the following items shu (where applicable) has been applied. Labs Laboratory Tests Test 08/11/19 13:40 08/11/19 14:05 08/11/19 21:13 08/12/19 04:00 Sodium Level 131 mmol/L (136-145) Potassium Level 3.7 mmol/L (3.5-5.1) Chloride Level 100 mmol/L (98-107) Carbon Dioxide Level 18 mmol/L (21-32) Anion Gap 13 (6-14) Blood Urea Nitrogen 32 mg/dL (8-26) Creatinine 1.7 mg/dL (0.7-1.3) 1.7 mg/dL (0.7-1.3) Estimated GFR (Cockcroft-Gault) 42.2 42.2 BUN/Creatinine Ratio 19 (6-20) Glucose Level 213 mg/dL (70-99) Lactic Acid Level 1.9 mmol/L (0.4-2.0) Calcium Level 9.6 mg/dL (8.5-10.1) Total Bilirubin 0.4 mg/dL (0.2-1.0) Aspartate Amino Transf (AST/SGOT) 29 U/L (15-37) Alanine Aminotransferase (ALT/SGPT) 44 U/L (16-63) Alkaline Phosphatase 207 U/L (46-116) Total Protein 8.7 g/dL (6.4-8.2) Albumin 3.2 g/dL (3.4-5.0) Albumin/Globulin Ratio 0.6 (1.0-1.7) Lipase 443 U/L (73-393) 830 U/L (73-393) White Blood Count 7.0 x10^3/uL (4.0-11.0) Red Blood Count 3.22 x10^6/uL (4.30-5.70) Hemoglobin 9.2 g/dL (13.0-17.5) Hematocrit 26.3 % (39.0-53.0) Mean Corpuscular Volume 82 fL (79-100) Mean Corpuscular Hemoglobin 29 pg (25-35) Mean Corpuscular Hemoglobin Concent 35 g/dL (31-37) Red Cell Distribution Width 15.2 % (11.5-14.5) Platelet Count 244 x10^3/uL (140-400) Neutrophils (%) (Auto) 79 % (31-73) Lymphocytes (%) (Auto) 15 % (24-48) Monocytes (%) (Auto) 6 % (0-9) Eosinophils (%) (Auto) 0 % (0-3) Basophils (%) (Auto) 0 % (0-3) Neutrophils # (Auto) 5.5 x10^3/uL (1.8-7.7) Lymphocytes # (Auto) 1.0 x10^3/uL (1.0-4.8) Monocytes # (Auto) 0.4 x10^3/uL (0.0-1.1) Eosinophils # (Auto) 0.0 x10^3/uL (0.0-0.7) Basophils # (Auto) 0.0 x10^3/uL (0.0-0.2) Erythrocyte Sedimentation Rate 120 (0-15) Iron Level 40 ug/dL (65-175) Total Iron Binding Capacity 216 ug/dL (250-450) Iron Saturation 19 % (15-34) Vitamin B12 Level 585 pg/mL (247-911) Glucose (Fingerstick) 208 mg/dL (70-99) Test 08/12/19 07:30 08/12/19 11:27 Glucose (Fingerstick) 162 mg/dL (70-99) 215 mg/dL (70-99) Laboratory Tests Test 08/11/19 13:40 08/11/19 14:05 08/11/19 21:13 08/12/19 04:00 Sodium Level 131 mmol/L (136-145) Potassium Level 3.7 mmol/L (3.5-5.1) Chloride Level 100 mmol/L (98-107) Carbon Dioxide Level 18 mmol/L (21-32) Anion Gap 13 (6-14) Blood Urea Nitrogen 32 mg/dL (8-26) Creatinine 1.7 mg/dL (0.7-1.3) 1.7 mg/dL (0.7-1.3) Estimated GFR (Cockcroft-Gault) 42.2 42.2 BUN/Creatinine Ratio 19 (6-20) Glucose Level 213 mg/dL (70-99) Lactic Acid Level 1.9 mmol/L (0.4-2.0) Calcium Level 9.6 mg/dL (8.5-10.1) Total Bilirubin 0.4 mg/dL (0.2-1.0) Aspartate Amino Transf (AST/SGOT) 29 U/L (15-37) Alanine Aminotransferase (ALT/SGPT) 44 U/L (16-63) Alkaline Phosphatase 207 U/L (46-116) Total Protein 8.7 g/dL (6.4-8.2) Albumin 3.2 g/dL (3.4-5.0) Albumin/Globulin Ratio 0.6 (1.0-1.7) Lipase 443 U/L (73-393) 830 U/L (73-393) White Blood Count 7.0 x10^3/uL (4.0-11.0) Red Blood Count 3.22 x10^6/uL (4.30-5.70) Hemoglobin 9.2 g/dL (13.0-17.5) Hematocrit 26.3 % (39.0-53.0) Mean Corpuscular Volume 82 fL (79-100) Mean Corpuscular Hemoglobin 29 pg (25-35) Mean Corpuscular Hemoglobin Concent 35 g/dL (31-37) Red Cell Distribution Width 15.2 % (11.5-14.5) Platelet Count 244 x10^3/uL (140-400) Neutrophils (%) (Auto) 79 % (31-73) Lymphocytes (%) (Auto) 15 % (24-48) Monocytes (%) (Auto) 6 % (0-9) Eosinophils (%) (Auto) 0 % (0-3) Basophils (%) (Auto) 0 % (0-3) Neutrophils # (Auto) 5.5 x10^3/uL (1.8-7.7) Lymphocytes # (Auto) 1.0 x10^3/uL (1.0-4.8) Monocytes # (Auto) 0.4 x10^3/uL (0.0-1.1) Eosinophils # (Auto) 0.0 x10^3/uL (0.0-0.7) Basophils # (Auto) 0.0 x10^3/uL (0.0-0.2) Erythrocyte Sedimentation Rate 120 (0-15) Iron Level 40 ug/dL (65-175) Total Iron Binding Capacity 216 ug/dL (250-450) Iron Saturation 19 % (15-34) Vitamin B12 Level 585 pg/mL (247-911) Glucose (Fingerstick) 208 mg/dL (70-99) Test 08/12/19 07:30 08/12/19 11:27 Glucose (Fingerstick) 162 mg/dL (70-99) 215 mg/dL (70-99) Medications Current Medications Sodium Chloride 1,000 ml @ 1,000 mls/hr 1X ONCE IV Last administered on 08/11/19at 14:00; Start 08/11/19 at 13:45; Stop 08/11/19 at 14:44; Status DC Ondansetron HCl (Zofran) 4 mg PRN Q8HRS PRN IV NAUSEA/VOMITING Last administered on 08/11/19at 17:17; Start 08/11/19 at 15:45; Stop 08/12/19 at 08:54; Status DC Fentanyl Citrate (Fentanyl 2ml Vial) 50 mcg PRN Q1HR PRN IV PAIN Last administered on 08/11/19at 17:19; Start 08/11/19 at 15:45; Stop 08/12/19 at 15:44 Sodium Chloride 1,000 ml @ 75 mls/hr [id number] IV Last administered on 08/12/19at 04:55; Start 08/11/19 at 15:35; Stop 08/12/19 at 15:34 Piperacillin Sod/ Tazobactam Sod (Zosyn Per Pharmacy) 1 each PRN DAILY PRN MC SEE COMMENTS; Start 08/11/19 at 15:45; Stop 08/12/19 at 10:27; Status DC Vancomycin HCl (Vanco Per Pharmacy) 1 each PRN DAILY PRN MC SEE COMMENTS Last administered on 08/11/19at 19:02; Start 08/11/19 at 15:45; Stop 08/12/19 at 10:27; Status DC Sodium Chloride 1,000 ml @ 75 mls/hr 1X ONCE IV ; Start 08/11/19 at 15:45; Stop 08/12/19 at 05:04; Status DC Piperacillin Sod/ Tazobactam Sod 3.375 gm/Sodium Chloride 50 ml @ 100 mls/hr ONCE ONCE IV Last administered on 08/11/19at 16:35; Start 08/11/19 at 16:00; Stop 08/12/19 at 10:27; Status DC Vancomycin HCl 2 gm/Sodium Chloride 500 ml @ 250 mls/hr 1X ONCE IV Last administered on 08/11/19at 17:10; Start 08/11/19 at 16:00; Stop 08/12/19 at 10 :27; Status DC Pantoprazole Sodium (PROTONIX VIAL for IV PUSH) 40 mg DAILY IVP Last administered on 08/11/19at 17:21; Start 08/11/19 at 16:30; Stop 08/12/19 at 10:01; Status DC Piperacillin Sod/ Tazobactam Sod 4.5 gm/Sodium Chloride 100 ml @ 200 mls/hr Q6HRS IV Last administered on 08/12/19at 06:08; Start 08/12/19 at 00:00 Vancomycin HCl 1.5 gm/Sodium Chloride 500 ml @ 250 mls/hr Q24H IV ; Start 08/12/19 at 17:00 Vancomycin HCl (Vancomycin Trough Level) 1 each 1X ONCE MC ; Start 08/13/19 at 16:30; Stop 08/12/19 at 10:27; Status DC Ondansetron HCl (Zofran) 4 mg PRN Q6HRS PRN IV NAUSEA/VOMITING; Start 08/12/19 at 09:00 Acetaminophen (Tylenol) 500 mg PRN Q6HRS PRN PO MILD PAIN / TEMP; Start 08/12/19 at 09:00 Oxycodone/ Acetaminophen (Percocet 5/325) 1 tab PRN Q4HRS PRN PO PAIN; Start 08/12/19 at 09:00 Morphine Sulfate (Morphine Sulfate) 2 mg PRN Q2HR PRN IV PAIN; Start 08/12/19 at 09:00 Zolpidem Tartrate (Ambien) 5 mg PRN QHS PRN PO INSOMNIA; Start 08/12/19 at 09:00 Nicotine (Nicoderm Cq 21mg) 1 patch PRN DAILY PRN TD SMOKING CESSATION; Start 08/12/19 at 09:00 Labetalol HCl (Normodyne Iv Push) 10 mg PRN Q2HR PRN IVP HYPERTENSION; Start 08/12/19 at 09:00 Famotidine (Pepcid) 20 mg QHS PO ; Start 08/12/19 at 21:00 Ciprofloxacin (Cipro) 500 mg BID PO ; Start 08/12/19 at 11:00 Doxycycline Hyclate (Vibra-Tab) 100 mg BID PO ; Start 08/12/19 at 11:00 Ondansetron HCl (Zofran) 4 mg PRN Q6HRS PRN IVP NAUSEA/VOMITING; Start 08/12/19 at 12:00; Status UNV Pantoprazole Sodium (Protonix) 40 mg DAILYAC PO ; Start 08/13/19 at 07:30; Status UNV Insulin Human Lispro (HumaLOG) 0-9 UNITS TIDWMEALS SQ ; Start 08/12/19 at 12:0 0; Status UNV Dextrose (Dextrose 50%-Water Syringe) 12.5 gm PRN Q15MIN PRN IV SEE COMMENTS; Start 08/12/19 at 12:00; Status UNV Active Scripts Active Reported Lantus Solostar (Insulin Glargine,Hum.rec.anlog) 100 Unit/1 Ml Insuln.pen 70 Unit SQ QHS Humalog (Insulin Lispro) 100 Unit/1 Ml Vial 26 Unit SQ TIDBFRMEAL Vitals/I & O Vital Sign - Last 24 Hours 08/11/19 08/11/19 08/11/19 08/11/19 13:06 13:30 14:00 14:30 Temp 98.3 98.3 Pulse 88 88 86 88 Resp 18 18 18 18 B/P (MAP) 184/86 (118) 174/88 (116) 191/99 (129) 189/88 (121) Pulse Ox 100 97 97 97 O2 Delivery Room Air Room Air Room Air Room Air 08/11/19 08/11/19 08/11/1908/11/19 15:00 16:00 17:19 18:30 Pulse 90 94 Resp 18 18 20 B/P (MAP) 182/95 (124) 155/76 (102) Pulse Ox 96 97 O2 Delivery Room Air Room Air Room Air Room Air 08/11/19 08/11/19 08/11/19 08/11/19 19:00 19:25 20:34 23:25 Temp 97.6 98.4 97.6 98.4 Pulse 90 76 Resp 17 16 B/P (MAP) 156/80 (105) 135/52 (79) Pulse Ox 100 100 100 O2 Delivery Room Air Room Air Room Air Room Air 08/12/19 08/12/19 08/12/19 08/12/19 03:25 07:00 08:00 11:00 Temp 98.0 98.4 98.4 98.0 98.4 98.4 Pulse 84 74 82 Resp 16 16 16 B/P (MAP) 144/78 (100) 142/74 (96) 138/71 (93) Pulse Ox 100 99 100 O2 Delivery Room Air Room Air Room Air Room Air Intake and Output 08/11/19 08/11/19 08/12/19 15:00 23:00 07:00 Intake Total 50 ml 900 ml Output Total 2150 ml Balance 50 ml -1250 ml JENNIFER THOMPSON MD Aug 12, 2019 12:04
[2019-08-12] MEDS: INSULIN LISPRO 300 UNITS/3 ML VIAL. SQ SCH ×2 (12:29→18:18)
--- NOTE | 2019-08-12 13:26 | NUR ---
Gave report to Jie on , concerning this patient. Transportation taking down in wheelchair.
[2019-08-12 14:20] VITALS: BP 162/82
[2019-08-12] MEDS ORDERED: metroNIDAZOLE 500 MG TABLET PO SCH (14:45)
[2019-08-12] MEDS ORDERED: VANCOMYCIN 1.5 GM in IV NORMAL SALINE 500ML BAG 500 ML IV SCH (17:00)
[2019-08-12] MEDS: VANCOMYCIN 125 MG/2.5 ML ORAL SOLUTION. PO SCH ×2 (18:15→22:20)
[2019-08-12 19:00] VITALS: BP 131/53
[2019-08-12] MEDS ORDERED: FAMOTIDINE 20 MG TABLET. PO SCH (21:00)
[2019-08-12] MEDS: LACTOBACILLUS RHAMNOSUS GG 1 CAPSULE. PO SCH (22:20)
[2019-08-12 23:00] VITALS: BP 140/61
[2019-08-13 00:08] LABS: HEMOGLOBIN A1C 7.7 % (4.8-5.6)
--- NOTE | 2019-08-13 00:32 | NUR ---
Vancomycin oral solution, Lactobacillus, famotidine, ciprofloxacin, and doxycycline hyclate were all given to this patient at 2220 during [employer] downtime.
[2019-08-13] MEDS: oxyCODONE/APAP 5/325 1 TAB TABLET PO PRN ×2 (01:45→08:15)
[2019-08-13 03:00] VITALS: BP 131/62
[2019-08-13 04:38] LABS: BASO % 1 % (0-3); EOS # 0.1 x10^3/uL (0.0-0.7); EOS % 2 % (0-3); HEMATOCRIT 23.8 % (39.0-53.0); HEMOGLOBIN 8.3 g/dL (13.0-17.5); LYMPH # 1.8 x10^3/uL (1.0-4.8); LYMPH % 30 % (24-48); MEAN CORPUSCULAR HEMOGLOBIN 29 pg (25-35); MEAN CORPUSCULAR HGB CONC 35 g/dL (31-37); MEAN CORPUSCULAR VOLUME 83 fL (79-100); MONO # 0.5 x10^3/uL (0.0-1.1); MONO % 8 % (0-9); NEUT # 3.6 x10^3/uL (1.8-7.7); NEUT % 59 % (31-73); PLATELET COUNT 193 x10^3/uL (140-400); RED BLOOD COUNT 2.87 x10^6/uL (4.30-5.70); RED CELL DISTRIBUTION WIDTH 15.1 % (11.5-14.5)
[2019-08-13 07:00] VITALS: BP 155/73
[2019-08-13] MEDS ORDERED: PANTOPRAZOLE 40 MG TABLET.DR. PO SCH (07:30)
[2019-08-13] MEDS: INSULIN LISPRO 300 UNITS/3 ML VIAL. SQ SCH ×2 (08:17→12:00)
--- NOTE | 2019-08-13 08:32 | NUR ---
IP: Pt is C.diff + requiring contact plus precautions using brown sign.
--- NOTE | 2019-08-13 08:45 | PDOC ---
PROGRESS NOTES Chief Complaint Chief Complaint Abdominal pain with a slightly elevated lipase of unclear etiology. 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 Recent amputation at the metacarpophalangeal joint of the second and third fingers. There is a slight superficial wound there. There are no other signs of infection. It does not look deep. Diabetes. Renal insufficiency, baseline is unknown. C difficile diarrhea History of Present Illness History of Present Illness LIpase 433, NORMAL CT. MInimal abd pain GI seen, conservative mx ID also saw for that recent rt finger amputation at [place] and left BKA ID has shifted to PO abx. C diff returned positive. he feels much better after a day of oral vancomycin, no further diarrhea. Feels much better - denies pain, n/v, and diarrhea - wants to go home. Tolerating regular food. PLAN: COnt wound care, PO abx dw RN Vitals Vitals Vital Signs Date Time Temp Pulse Resp B/P (MAP) Pulse Ox O2 Delivery O2 Flow Rate FiO2 08/13/19 08:15 18 Room Air 08/13/19 03:00 98.2 76 131/62 (85) 99 98.2 Physical Exam General: Alert, Oriented X3, Cooperative, No acute distress Heart: Regular rate, Normal S1, Normal S2, No murmurs Lungs: Clear Abdomen: Normal bowel sounds, Soft, No tenderness Extremities: No clubbing, No cyanosis, No edema, Normal pulses, Other (left BKA stump with sutures, RT fonger dressing dry) Labs LABS Laboratory Tests Test 08/12/19 11:27 08/12/19 16:57 08/12/19 21:03 08/13/19 03:50 Glucose (Fingerstick) 215 mg/dL (70-99) 181 mg/dL (70-99) 190 mg/dL (70-99) White Blood Count 6.0 x10^3/uL (4.0-11.0) Red Blood Count 2.87 x10^6/uL (4.30-5.70) Hemoglobin 8.3 g/dL (13.0-17.5) Hematocrit 23.8 % (39.0-53.0) Mean Corpuscular Volume 83 fL (79-100) Mean Corpuscular Hemoglobin 29 pg (25-35) Mean Corpuscular Hemoglobin Concent 35 g/dL (31-37) Red Cell Distribution Width 15.1 % (11.5-14.5) Platelet Count 193 x10^3/uL (140-400) Neutrophils (%) (Auto) 59 % (31-73) Lymphocytes (%) (Auto) 30 % (24-48) Monocytes (%) (Auto) 8 % (0-9) Eosinophils (%) (Auto) 2 % (0-3) Basophils (%) (Auto) 1 % (0-3) Neutrophils # (Auto) 3.6 x10^3/uL (1.8-7.7) Lymphocytes # (Auto) 1.8 x10^3/uL (1.0-4.8) Monocytes # (Auto) 0.5 x10^3/uL (0.0-1.1) Eosinophils # (Auto) 0.1 x10^3/uL (0.0-0.7) Basophils # (Auto) 0.0 x10^3/uL (0.0-0.2) Creatinine 2.0 mg/dL (0.7-1.3) Estimated GFR (Cockcroft-Gault) 35.0 Lipase 2010 U/L (73-393) Test 08/13/19 08:06 Glucose (Fingerstick) 267 mg/dL (70-99) Assessment and Plan Assessmemt and Plan Problems Medical Problems: (1) Cellulitis Status: Acute (2) Pancreatitis Status: Acute Comment Review of Relevant I have reviewed the following items shu (where applicable) has been applied. Labs Laboratory Tests Test 08/11/19 13:40 08/11/19 14:05 08/11/19 21:13 08/12/19 04:00 Sodium Level 131 mmol/L (136-145) Potassium Level 3.7 mmol/L (3.5-5.1) Chloride Level 100 mmol/L (98-107) Carbon Dioxide Level 18 mmol/L (21-32) Anion Gap 13 (6-14) Blood Urea Nitrogen 32 mg/dL (8-26) Creatinine 1.7 mg/dL (0.7-1.3) 1.7 mg/dL (0.7-1.3) Estimated GFR (Cockcroft-Gault) 42.2 42.2 BUN/Creatinine Ratio 19 (6-20) Glucose Level 213 mg/dL (70-99) Lactic Acid Level 1.9 mmol/L (0.4-2.0) Calcium Level 9.6 mg/dL (8.5-10.1) Total Bilirubin 0.4 mg/dL (0.2-1.0) Aspartate Amino Transf (AST/SGOT) 29 U/L (15-37) Alanine Aminotransferase (ALT/SGPT) 44 U/L (16-63) Alkaline Phosphatase 207 U/L (46-116) Total Protein 8.7 g/dL (6.4-8.2) Albumin 3.2 g/dL (3.4-5.0) Albumin/Globulin Ratio 0.6 (1.0-1.7) Lipase 443 U/L (73-393) 830 U/L (73-393) White Blood Count 7.0 x10^3/uL (4.0-11.0) Red Blood Count 3.22 x10^6/uL (4.30-5.70) Hemoglobin 9.2 g/dL (13.0-17.5) Hematocrit 26.3 % (39.0-53.0) Mean Corpuscular Volume 82 fL (79-100) Mean Corpuscular Hemoglobin 29 pg (25-35) Mean Corpuscular Hemoglobin Concent 35 g/dL (31-37) Red Cell Distribution Width 15.2 % (11.5-14.5) Platelet Count 244 x10^3/uL (140-400) Neutrophils (%) (Auto) 79 % (31-73) Lymphocytes (%) (Auto) 15 % (24-48) Monocytes (%) (Auto) 6 % (0-9) Eosinophils (%) (Auto) 0 % (0-3) Basophils (%) (Auto) 0 % (0-3) Neutrophils # (Auto) 5.5 x10^3/uL (1.8-7.7) Lymphocytes # (Auto) 1.0 x10^3/uL (1.0-4.8) Monocytes # (Auto) 0.4 x10^3/uL (0.0-1.1) Eosinophils # (Auto) 0.0 x10^3/uL (0.0-0.7) Basophils # (Auto) 0.0 x10^3/uL (0.0-0.2) Erythrocyte Sedimentation Rate 120 (0-15) Hemoglobin A1c 7.7 % (4.8-5.6) Iron Level 40 ug/dL (65-175) Total Iron Binding Capacity 216 ug/dL (250-450) Iron Saturation 19 % (15-34) Vitamin B12 Level 585 pg/mL (247-911) Glucose (Fingerstick) 208 mg/dL (70-99) Test 08/12/19 06:22 08/12/19 07:30 08/12/19 11:27 08/12/19 16:57 Clostridium difficile Toxin B Gene Positive (Negative) Glucose (Fingerstick) 162 mg/dL (70-99) 215 mg/dL (70-99) 181 mg/dL (70-99) Test 08/12/19 21:03 08/13/19 03:50 08/13/19 08:06 Glucose (Fingerstick) 190 mg/dL (70-99) 267 mg/dL (70-99) White Blood Count 6.0 x10^3/uL (4.0-11.0) Red Blood Count 2.87 x10^6/uL (4.30-5.70) Hemoglobin 8.3 g/dL (13.0-17.5) Hematocrit 23.8 % (39.0-53.0) Mean Corpuscular Volume 83 fL (79-100) Mean Corpuscular Hemoglobin 29 pg (25-35) Mean Corpuscular Hemoglobin Concent 35 g/dL (31-37) Red Cell Distribution Width 15.1 % (11.5-14.5) Platelet Count 193 x10^3/uL (140-400) Neutrophils (%) (Auto) 59 % (31-73) Lymphocytes (%) (Auto) 30 % (24-48) Monocytes (%) (Auto) 8 % (0-9) Eosinophils (%) (Auto) 2 % (0-3) Basophils (%) (Auto) 1 % (0-3) Neutrophils # (Auto) 3.6 x10^3/uL (1.8-7.7) Lymphocytes # (Auto) 1.8 x10^3/uL (1.0-4.8) Monocytes # (Auto) 0.5 x10^3/uL (0.0-1.1) Eosinophils # (Auto) 0.1 x10^3/uL (0.0-0.7) Basophils # (Auto) 0.0 x10^3/uL (0.0-0.2) Creatinine 2.0 mg/dL (0.7-1.3) Estimated GFR (Cockcroft-Gault) 35.0 Lipase 2010 U/L (73-393) Laboratory Tests Test 08/12/19 11:27 08/12/19 16:57 08/12/19 21:03 08/13/19 03:50 Glucose (Fingerstick) 215 mg/dL (70-99) 181 mg/dL (70-99) 190 mg/dL (70-99) White Blood Count 6.0 x10^3/uL (4.0-11.0) Red Blood Count 2.87 x10^6/uL (4.30-5.70) Hemoglobin 8.3 g/dL (13.0-17.5) Hematocrit 23.8 % (39.0-53.0) Mean Corpuscular Volume 83 fL (79-100) Mean Corpuscular Hemoglobin 29 pg (25-35) Mean Corpuscular Hemoglobin Concent 35 g/dL (31-37) Red Cell Distribution Width 15.1 % (11.5-14.5) Platelet Count 193 x10^3/uL (140-400) Neutrophils (%) (Auto) 59 % (31-73) Lymphocytes (%) (Auto) 30 % (24-48) Monocytes (%) (Auto) 8 % (0-9) Eosinophils (%) (Auto) 2 % (0-3) Basophils (%) (Auto) 1 % (0-3) Neutrophils # (Auto) 3.6 x10^3/uL (1.8-7.7) Lymphocytes # (Auto) 1.8 x10^3/uL (1.0-4.8) Monocytes # (Auto) 0.5 x10^3/uL (0.0-1.1) Eosinophils # (Auto) 0.1 x10^3/uL (0.0-0.7) Basophils # (Auto) 0.0 x10^3/uL (0.0-0.2) Creatinine 2.0 mg/dL (0.7-1.3) Estimated GFR (Cockcroft-Gault) 35.0 Lipase 2010 U/L (73-393) Test 08/13/19 08:06 Glucose (Fingerstick) 267 mg/dL (70-99) Microbiology 08/11/19 Blood Culture - Preliminary, Resulted NO GROWTH AFTER 1 DAY Medications Current Medications Sodium Chloride 1,000 ml @ 1,000 mls/hr 1X ONCE IV Last administered on at 14:00; Start 08/11/19 at 13:45; Stop 08/11/19 at 14:44; Status DC Ondansetron HCl (Zofran) 4 mg PRN Q8HRS PRN IV NAUSEA/VOMITING Last administered on 08/11/19at 17:17; Start 08/11/19 at 15:45; Stop 08/12/19 at 08:54; Status DC Fentanyl Citrate (Fentanyl 2ml Vial) 50 mcg PRN Q1HR PRN IV PAIN Last administered on 08/11/19at 17:19; Start 08/11/19 at 15:45; Stop 08/12/19 at 15:44; Status DC Sodium Chloride 1,000 ml @ 75 mls/hr [id number] IV Last administered on 08/12/19at 04:55; Start 08/11/19 at 15:35; Stop 08/12/19 at 15:34; Status DC Piperacillin Sod/ Tazobactam Sod (Zosyn Per Pharmacy) 1 each PRN DAILY PRN MC SEE COMMENTS; Start 08/11/19 at 15:45; Stop 08/12/19 at 10:27; Status DC Vancomycin HCl (Vanco Per Pharmacy) 1 each PRN DAILY PRN MC SEE COMMENTS Last administered on 08/11/19at 19:02; Start 08/11/19 at 15:45; Stop 08/12/19 at 10:27; Status DC Sodium Chloride 1,000 ml @ 75 mls/hr 1X ONCE IV ; Start 08/11/19 at 15:45; Stop 08/12/19 at 05:04; Status DC Piperacillin Sod/ Tazobactam Sod 3.375 gm/Sodium Chloride 50 ml @ 100 mls/hr ONCE ONCE IV Last administered on 08/11/19at 16:35; Start 08/11/19 at 16:00; Stop 08/12/19 at 10:27; Status DC Vancomycin HCl 2 gm/Sodium Chloride 500 ml @ 250 mls/hr 1X ONCE IV Last administered on 08/11/19at 17:10; Start 08/11/19 at 16:00; Stop 08/12/19 at 10:27; Status DC Pantoprazole Sodium (PROTONIX VIAL for IV PUSH) 40 mg DAILY IVP Last administered on 08/11/19at 17:21; Start 08/11/19 at 16:30; Stop 08/12/19 at 10:01; Status DC Piperacillin Sod/ Tazobactam Sod 4.5 gm/Sodium Chloride 100 ml @ 200 mls/hr Q6HRS IV Last administered on 08/12/19at 06:08; Start 08/12/19 at 00:00; Stop 08/12/19 at 17:41; Status DC Vancomycin HCl 1.5 gm/Sodium Chloride 500 ml @ 250 mls/hr Q24H IV ; Start 08/12/19 at 17:00; Stop 08/12/19 at 17:41; Status DC Vancomycin HCl (Vancomycin Trough Level) 1 each 1X ONCE MC ; Start 08/13/19 at 16:30; Stop 08/12/19 at 10:27; Status DC Ondansetron HCl (Zofran) 4 mg PRN Q6HRS PRN IV NAUSEA/VOMITING; Start 08/12/19 at 09:00 Acetaminophen (Tylenol) 500 mg PRN Q6HRS PRN PO MILD PAIN / TEMP; Start 08/12/19 at 09:00 Oxycodone/ Acetaminophen (Percocet 5/325) 1 tab PRN Q4HRS PRN PO PAIN Last administered on 08/13/19at 08:15; Start 08/12/19 at 09:00 Morphine Sulfate (Morphine Sulfate) 2 mg PRN Q2HR PRN IV PAIN; Start 08/12/19 at 09:00 Zolpidem Tartrate (Ambien) 5 mg PRN QHS PRN PO INSOMNIA; Start 08/12/19 at 09:00 Nicotine (Nicoderm Cq 21mg) 1 patch PRN DAILY PRN TD SMOKING CESSATION; Start 08/12/19 at 09:00 Labetalol HCl (Normodyne Iv Push) 10 mg PRN Q2HR PRN IVP HYPERTENSION; Start 08/12/19 at 09:00 Famotidine (Pepcid) 20 mg QHS PO Last administered on 08/12/19at 22:20; Start 08/12/19 at 21:00 Ciprofloxacin (Cipro) 500 mg BID PO Last administered on 08/12/19at 22:20; Start 08/12/19 at 11:00 Doxycycline Hyclate (Vibra-Tab) 100 mg BID PO Last administered on 08/12/19at 22:20; Start 08/12/19 at 11:00 Ondansetron HCl (Zofran) 4 mg PRN Q6HRS PRN IVP NAUSEA/VOMITING; Start 08/12/19 at 12:00; Status UNV Pantoprazole Sodium (Protonix) 40 mg DAILYAC PO ; Start 08/13/19 at 07:30; Stop 08/12/19 at 14:18; Status DC Insulin Human Lispro (HumaLOG) 0-9 UNITS TIDWMEALS SQ Last administered on 08/13/19at 08:17; Start 08/12/19 at 12:00 Dextrose (Dextrose 50%-Water Syringe) 12.5 gm PRN Q15MIN PRN IV SEE COMMENTS; Start 08/12/19 at 12:00 Multivitamins (Thera M Plus) 1 tab DAILY PO ; Start 08/13/19 at 09:00 Lactobacillus Rhamnosus (Culturelle) 1 cap BID PO Last administered on 08/12/19at 22:20; Start 08/12/19 at 21:00 Vancomycin HCl (Vancomycin Oral Solution) 125 mg [id number] PO Last administered on 08/12/19at 22:20; Start 08/12/19 at 17:00 Metronidazole (Flagyl) 500 mg Q8HRS PO ; Start 08/12/19 at 14:45; Stop 08/12/19 at 16:01; Status DC Active Scripts Active Reported Lantus Solostar (Insulin Glargine,Hum.rec.anlog) 100 Unit/1 Ml Insuln.pen 70 Unit SQ QHS Humalog (Insulin Lispro) 100 Unit/1 Ml Vial 26 Unit SQ TIDBFRMEAL Vitals/I & O Vital Sign - Last 24 Hours 08/12/19 08/12/19 08/12/19 08/12/19 11:00 14:20 14:45 19:00 Temp 98.4 98.0 98.3 98.4 98.0 98.3 Pulse 82 86 70 Resp 16 16 18 B/P (MAP) 138/71 (93) 162/82 (108) 131/53 (79) Pulse Ox 100 100 99 O2 Delivery Room Air Room Air Room Air Room Air 08/12/19 08/12/19 08/13/19 08/13/19 20:00 23:00 01:45 03:00 Temp 98.0 98.2 98.0 98.2 Pulse 83 76 Resp 18 18 B/P (MAP) 140/61 (87) 131/62 (85) Pulse Ox 99 99 99 O2 Delivery Room Air Room Air Room Air Room Air 08/13/19 08:15 Resp 18 O2 Delivery Room Air Intake and Output 08/12/19 08/12/19 08/13/19 14:59 22:59 06:59 Intake Total 0 ml Output Total 500 ml Balance 0 ml -500 ml ESCOBAR MUÑIZ MD Aug 13, 2019 08:45
[2019-08-13] MEDS ORDERED: MULTIVITAMIN with MINERAL TABLET. PO SCH (09:00)
--- NOTE | 2019-08-13 09:29 | PDOC ---
Infectious Disease Note Subjective Subjective pt says he is feeling much better, no abd pain, no diarrhea eating well ROS ROS no n/v/fever/sob Vital Sign Vital Signs Vital Signs Date Time Temp Pulse Resp B/P (MAP) Pulse Ox O2 Delivery O2 Flow Rate FiO2 08/13/19 08:15 18 Room Air 08/13/19 07:00 98.0 76 155/73 (100) 99 98.0 Physical Exam PHYSICAL EXAM GENERAL: Alert, oriented gentleman, not in any distress. VITAL SIGNS: Stable, afebrile. HEENT: NAD. NECK: Supple, no JVP, no lymphadenopathy. LUNGS: Clear. HEART: S1, S2 regular. ABDOMEN: Benign. EXTREMITIES: No edema or cyanosis. SKIN: Left BKA stump is unremarkable. Looks really good. At the right hand amputation site on the third finger at the base, there is a slightly open wound. There are no signs of infection. There is no exposed bone or tendon. There is superficial wound seen. NEUROLOGIC: The patient is neurologically alert, awake, and appropriate. No focal neurologic deficit. Labs Lab Laboratory Tests Test 08/12/19 11:27 08/12/19 16:57 08/12/19 21:03 08/13/19 03:50 Glucose (Fingerstick) 215 mg/dL (70-99) 181 mg/dL (70-99) 190 mg/dL (70-99) White Blood Count 6.0 x10^3/uL (4.0-11.0) Red Blood Count 2.87 x10^6/uL (4.30-5.70) Hemoglobin 8.3 g/dL (13.0-17.5) Hematocrit 23.8 % (39.0-53.0) Mean Corpuscular Volume 83 fL (79-100) Mean Corpuscular Hemoglobin 29 pg (25-35) Mean Corpuscular Hemoglobin Concent 35 g/dL (31-37) Red Cell Distribution Width 15.1 % (11.5-14.5) Platelet Count 193 x10^3/uL (140-400) Neutrophils (%) (Auto) 59 % (31-73) Lymphocytes (%) (Auto) 30 % (24-48) Monocytes (%) (Auto) 8 % (0-9) Eosinophils (%) (Auto) 2 % (0-3) Basophils (%) (Auto) 1 % (0-3) Neutrophils # (Auto) 3.6 x10^3/uL (1.8-7.7) Lymphocytes # (Auto) 1.8 x10^3/uL (1.0-4.8) Monocytes # (Auto) 0.5 x10^3/uL (0.0-1.1) Eosinophils # (Auto) 0.1 x10^3/uL (0.0-0.7) Basophils # (Auto) 0.0 x10^3/uL (0.0-0.2) Creatinine 2.0 mg/dL (0.7-1.3) Estimated GFR (Cockcroft-Gault) 35.0 Lipase 2010 U/L (73-393) Test 08/13/19 08:06 Glucose (Fingerstick) 267 mg/dL (70-99) Micro Microbiology 08/11/19 Blood Culture - Preliminary, Resulted NO GROWTH AFTER 1 DAY Objective Assessment 1. Abdominal pain with elevated lipase of unclear etiology. Pt denies ETOH and was not on any meds. 2. 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 3. Recent amputation at the metacarpophalangeal joint of the second and third fingers. There is a slight superficial wound there. There are no other signs of infection. It does not look deep. 4. Diabetes. 5. Renal insufficiency, baseline is unknown. 6 C diff Plan Plan of Care d/c [facility] local care to hand f/u with his surgeon HINA FISH MD Aug 13, 2019 09:29
[2019-08-13] MEDS: LACTOBACILLUS RHAMNOSUS GG 1 CAPSULE. PO SCH (10:58)
[2019-08-13] MEDS: VANCOMYCIN 125 MG/2.5 ML ORAL SOLUTION. PO SCH ×2 (10:58→13:00)
[2019-08-13 11:11] VITALS: BP 149/75
--- NOTE | 2019-08-13 11:17 | NUR ---
SW following pt for dc planning. Chart reviewed. Pt lives at home and is self pay. Pt has PMHx ETOH use, PVD, recent BKA, right third finger amputation and HTN. Pt is admitted for Pancreatitis and Cellulites. ID following and on PO abx. Wound care following. SW will be available as needed.
--- NOTE | 2019-08-13 11:58 | PDOC ---
Subjective: Subjective: Feels much better - denies pain, n/v, and diarrhea - wants to go home. Tolerating regular food. Objective: Objective: D/w nurse this morning - DC today? Vital Signs: Vital Signs Date Time Temp Pulse Resp B/P (MAP) Pulse Ox O2 Delivery O2 Flow Rate FiO2 08/13/19 11:11 98.0 76 16 149/75 (99) 99 Room Air 98.0 Labs: Laboratory Tests Test 08/12/19 16:57 08/12/19 21:03 08/13/19 03:50 08/13/19 08:06 Glucose (Fingerstick) 181 mg/dL 190 mg/dL 267 mg/dL White Blood Count 6.0 x10^3/uL Red Blood Count 2.87 x10^6/uL Hemoglobin 8.3 g/dL Hematocrit 23.8 % Mean Corpuscular Volume 83 fL Mean Corpuscular Hemoglobin 29 pg Mean Corpuscular Hemoglobin Concent 35 g/dL Red Cell Distribution Width 15.1 % Platelet Count 193 x10^3/uL Neutrophils (%) (Auto) 59 % Lymphocytes (%) (Auto) 30 % Monocytes (%) (Auto) 8 % Eosinophils (%) (Auto) 2 % Basophils (%) (Auto) 1 % Neutrophils # (Auto) 3.6 x10^3/uL Lymphocytes # (Auto) 1.8 x10^3/uL Monocytes # (Auto) 0.5 x10^3/uL Eosinophils # (Auto) 0.1 x10^3/uL Basophils # (Auto) 0.0 x10^3/uL Creatinine 2.0 mg/dL Estimated GFR (Cockcroft-Gault) 35.0 Lipase 2010 U/L PE: GEN: NAD LUNGS: CTAB HEART: RRR ABD: NABS, S/ND/NT NEURO/PSYCH: A & O �3 A/P: Recent left BKA and right finger amputation Pancreatitis C Diff - on PO vanco ACD H/o alcohol use -- Tolerating regular diet w/o abd pain or n/v - no symptoms of pancreatitis and normal pancreas imaging despite elevated lipase. DC per primary - C Diff treatment per ID. Should have outpt screening colonoscopy - difficult w/o insurance. ALY ZAMARRIPA Aug 13, 2019 11:58
[2019-08-13] MEDS ORDERED: INSU100I13 SQ (12:31)
[2019-08-13] MEDS ORDERED: VANC500V PO (12:31)
[2019-08-13] MEDS ORDERED: INSU100I11 SQ (12:31)
--- NOTE | 2019-08-13 12:36 | PDOC3 ---
Discharge Summary Visit Information Date of Admission: Aug 11, 2019 Date of Discharge: Aug 13, 2019 Admitting Diagnosis: Diarrhea, pancreatitis Final Diagnosis Problems Medical Problems: (1) Cellulitis Status: Acute (2) Pancreatitis Status: Acute Brief Hospital Course Allergies Allergies Coded Allergies Type Severity Reaction Last Updated Verified No Known Drug Allergies 08/11/19 No Vital Signs Vital Signs Date Time Temp Pulse Resp B/P (MAP) Pulse Ox O2 Delivery O2 Flow Rate FiO2 08/13/19 11:11 98.0 76 16 149/75 (99) 99 Room Air 98.0 Lab Results Laboratory Tests Test 08/11/19 13:40 08/11/19 14:05 08/11/19 21:13 08/12/19 04:00 Sodium Level 131 mmol/L (136-145) Potassium Level 3.7 mmol/L (3.5-5.1) Chloride Level 100 mmol/L (98-107) Carbon Dioxide Level 18 mmol/L (21-32) Anion Gap 13 (6-14) Blood Urea Nitrogen 32 mg/dL (8-26) Creatinine 1.7 mg/dL (0.7-1.3) 1.7 mg/dL (0.7-1.3) Estimated GFR (Cockcroft-Gault) 42.2 42.2 BUN/Creatinine Ratio 19 (6-20) Glucose Level 213 mg/dL (70-99) Lactic Acid Level 1.9 mmol/L (0.4-2.0) Calcium Level 9.6 mg/dL (8.5-10.1) Total Bilirubin 0.4 mg/dL (0.2-1.0) Aspartate Amino Transf (AST/SGOT) 29 U/L (15-37) Alanine Aminotransferase (ALT/SGPT) 44 U/L (16-63) Alkaline Phosphatase 207 U/L (46-116) Total Protein 8.7 g/dL (6.4-8.2) Albumin 3.2 g/dL (3.4-5.0) Albumin/Globulin Ratio 0.6 (1.0-1.7) Lipase 443 U/L (73-393) 830 U/L (73-393) White Blood Count 7.0 x10^3/uL (4.0-11.0) Red Blood Count 3.22 x10^6/uL (4.30-5.70) Hemoglobin 9.2 g/dL (13.0-17.5) Hematocrit 26.3 % (39.0-53.0) Mean Corpuscular Volume 82 fL (79-100) Mean Corpuscular Hemoglobin 29 pg (25-35) Mean Corpuscular Hemoglobin Concent 35 g/dL (31-37) Red Cell Distribution Width 15.2 % (11.5-14.5) Platelet Count 244 x10^3/uL (140-400) Neutrophils (%) (Auto) 79 % (31-73) Lymphocytes (%) (Auto) 15 % (24-48) Monocytes (%) (Auto) 6 % (0-9) Eosinophils (%) (Auto) 0 % (0-3) Basophils (%) (Auto) 0 % (0-3) Neutrophils # (Auto) 5.5 x10^3/uL (1.8-7.7) Lymphocytes # (Auto) 1.0 x10^3/uL (1.0-4.8) Monocytes # (Auto) 0.4 x10^3/uL (0.0-1.1) Eosinophils # (Auto) 0.0 x10^3/uL (0.0-0.7) Basophils # (Auto) 0.0 x10^3/uL (0.0-0.2) Erythrocyte Sedimentation Rate 120 (0-15) Hemoglobin A1c 7.7 % (4.8-5.6) Iron Level 40 ug/dL (65-175) Total Iron Binding Capacity 216 ug/dL (250-450) Iron Saturation 19 % (15-34) Vitamin B12 Level 585 pg/mL (247-911) Glucose (Fingerstick) 208 mg/dL (70-99) Test 08/12/19 06:22 08/12/19 07:30 08/12/19 11:27 08/12/19 16:57 Clostridium difficile Toxin B Gene Positive (Negative) Glucose (Fingerstick) 162 mg/dL (70-99) 215 mg/dL (70-99) 181 mg/dL (70-99) Test 08/12/19 21:03 08/13/19 03:50 08/13/19 08:06 08/13/19 11:53 Glucose (Fingerstick) 190 mg/dL (70-99) 267 mg/dL (70-99) 188 mg/dL (70-99) White Blood Count 6.0 x10^3/uL (4.0-11.0) Red Blood Count 2.87 x10^6/uL (4.30-5.70) Hemoglobin 8.3 g/dL (13.0-17.5) Hematocrit 23.8 % (39.0-53.0) Mean Corpuscular Volume 83 fL (79-100) Mean Corpuscular Hemoglobin 29 pg (25-35) Mean Corpuscular Hemoglobin Concent 35 g/dL (31-37) Red Cell Distribution Width 15.1 % (11.5-14.5) Platelet Count 193 x10^3/uL (140-400) Neutrophils (%) (Auto) 59 % (31-73) Lymphocytes (%) (Auto) 30 % (24-48) Monocytes (%) (Auto) 8 % (0-9) Eosinophils (%) (Auto) 2 % (0-3) Basophils (%) (Auto) 1 % (0-3) Neutrophils # (Auto) 3.6 x10^3/uL (1.8-7.7) Lymphocytes # (Auto) 1.8 x10^3/uL (1.0-4.8) Monocytes # (Auto) 0.5 x10^3/uL (0.0-1.1) Eosinophils # (Auto) 0.1 x10^3/uL (0.0-0.7) Basophils # (Auto) 0.0 x10^3/uL (0.0-0.2) Creatinine 2.0 mg/dL (0.7-1.3) Estimated GFR (Cockcroft-Gault) 35.0 Lipase 2010 U/L (73-393) Laboratory Tests Test 08/12/19 16:57 08/12/19 21:03 08/13/19 03:50 08/13/19 08:06 Glucose (Fingerstick) 181 mg/dL (70-99) 190 mg/dL (70-99) 267 mg/dL (70-99) White Blood Count 6.0 x10^3/uL (4.0-11.0) Red Blood Count 2.87 x10^6/uL (4.30-5.70) Hemoglobin 8.3 g/dL (13.0-17.5) Hematocrit 23.8 % (39.0-53.0) Mean Corpuscular Volume 83 fL (79-100) Mean Corpuscular Hemoglobin 29 pg (25-35) Mean Corpuscular Hemoglobin Concent 35 g/dL (31-37) Red Cell Distribution Width 15.1 % (11.5-14.5) Platelet Count 193 x10^3/uL (140-400) Neutrophils (%) (Auto) 59 % (31-73) Lymphocytes (%) (Auto) 30 % (24-48) Monocytes (%) (Auto) 8 % (0-9) Eosinophils (%) (Auto) 2 % (0-3) Basophils (%) (Auto) 1 % (0-3) Neutrophils # (Auto) 3.6 x10^3/uL (1.8-7.7) Lymphocytes # (Auto) 1.8 x10^3/uL (1.0-4.8) Monocytes # (Auto) 0.5 x10^3/uL (0.0-1.1) Eosinophils # (Auto) 0.1 x10^3/uL (0.0-0.7) Basophils # (Auto) 0.0 x10^3/uL (0.0-0.2) Creatinine 2.0 mg/dL (0.7-1.3) Estimated GFR (Cockcroft-Gault) 35.0 Lipase 2010 U/L (73-393) Test 08/13/19 11:53 Glucose (Fingerstick) 188 mg/dL (70-99) Brief Hospital Course Mr Treadwell is a 53-year-old w/ PMHx diabetes mellitus, hypertension, noncompliance, hyperlipidemia. Also, history of alcohol problem, but he says he has not been drinking in the last 2 years. He recently underwent a left BKA and right second and third finger amputations. Apparently, the leg amputation was because of the diabetes and infection. The finger infection was because he burned the finger and then got infected and eventually amputated, all done at the same time about 3 weeks ago at [place]. The patient apparently walked out from there, was not on any antibiotics. The patient had been okay until he started having abdominal pain, hence he came in. The patient was noted to have a slightly high lipase, otherwise, abdominal CT unremarkable. The patient had no fever, no leukocytosis, although his sed rate is 120. Creatinine is 1.7. The patient has been admitted and started on vancomycin and Zosyn and consult has been requested. The patient then had abdominal pain and his stool culture from admission was positive for c. difficile. LIpase 433, NORMAL CT. MInimal abd pain GI seen, conservative mx ID also saw for that recent rt finger amputation at [place] and left BKA ID has shifted to PO abx. C diff returned positive. he feels much better after a day of oral vancomycin, no further diarrhea. Feels much better - denies pain, n/v, and diarrhea - wants to go home. Tolerating regular food. Problem list: Abdominal pain with a slightly elevated lipase of unclear etiology. 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 Recent amputation at the metacarpophalangeal joint of the second and third fingers. There is a slight superficial wound there. There are no other signs of infection. It does not look deep. Diabetes. Renal insufficiency, baseline is unknown. C difficile diarrhea PLAN: COnt wound care, PO vanco for 10 days, called in insulin refill as well Greater than 30 minutes spent on d/c Discharge Information Condition at Discharge: Improved Follow Up: Weeks (1) Disposition/Orders: D/C to Home Scheduled Insulin Glargine,Hum.rec.anlog (Lantus Solostar) 100 Unit/1 Ml Insuln.pen, 70 UNIT SQ QHS for Diabetes for 30 Days, #1 Ref 3 Prescribed by: ESCOBAR MUÑIZ MD on 08/13/19 1231 Insulin Lispro (Humalog) 100 Unit/1 Ml Insuln.pen, 26 UNITS SQ TIDWMEALS for DM2 for 30 Days, #1 Ref 4 Plus sliding scale 4u - 151-200 5u - 201-250 7u - 251-300 9u - 301-350 Prescribed by: ESCOBAR MUÑIZ MD on 08/13/19 1231 Vancomycin Hcl (Vancomycin Hcl) 500 Mg Vial, 125 MG PO [id number] for C difficile for 10 Days, #40 Can sub with any oral vancomycin formulation Prescribed by: ESCOBAR MUÑIZ MD on 08/13/19 1231 Discontinued Medications Insulin Lispro (Humalog) 100 Unit/1 Ml Vial, 26 UNIT SQ TIDBFRMEAL for Diabetes, (Reported) Entered as Reported by: MICHELLE WHATLEY RN on 08/12/191055 Last Taken: UNKNOWN on Unknown Date & Time Last Action: Reviewed on 08/12/191055 by EMILY TALAVERA CHRISTOPHER S MD Aug 13, 2019 12:36
--- NOTE | 2019-08-13 14:41 | NUR ---
Discharge Note: EM[facility] Discharge instructions and discharge home medications reviewed with Patient and a copy given. All questions have been answered and understanding verbalized. The following instructions and handouts were given: wound care Discontinued lines and drains: peripheral line. Patient discharged to Home or Self Care with Family Member via Wheelchair
== END 2019-08-13 13:30 | disposition home or self-care (01) | DRG 439 ==
LOC: ER 11:49 → ED HOLD 15:22 → 6 SOUTH 18:36 → 5 SOUTH 08-12 14:16
PROVIDERS: ADMIT Internal Medicine; ATTEND Internal Medicine
DX: K85.90 Acute pancreatitis without necrosis or infection, unspecified (principal); A04.72 Enterocolitis due to Clostridium difficile, not specified as recurrent; L03.90 Cellulitis, unspecified; D64.9 Anemia, unspecified; E78.5 Hyperlipidemia, unspecified; E11.51 Type 2 diabetes mellitus with diabetic peripheral angiopathy without gangrene; N28.9 Disorder of kidney and ureter, unspecified; I10 Essential (primary) hypertension; Z82.49 Family history of ischemic heart disease and other diseases of the circulatory system; Z89.512 Acquired absence of left leg below knee; Z91.19 Patient's noncompliance with other medical treatment and regimen; M19.90 Unspecified osteoarthritis, unspecified site; Z88.5 Allergy status to narcotic agent
CPT/HCPCS: 36415; 73130; 73590; 74176; 76705; 80053; 82565; 82607; 82962; 83036; 83540; 83550; 83605; 83690; 85025; 85651; 87040; 87045; 87493; 93005; 96361; 96365; 96368; 96375; C9113; J1815; J2405; J2543; J3010; J3370; J7030; J7040; 99285-25; G0378